=== PATIENT | female | born 1995 | race Caucasian/White ===

== ENCOUNTER 2024-11-08 08:11 | Outpatient (CLI) | payer OTHER | END 2024-11-08 08:12 | disposition home or self-care (01) | LOC: CSHWCC 08:11 | PROVIDERS: ATTEND Nurse Practitioner Family | DX: T81.328D Disruption or dehiscence of closure of other specified internal operation (surgical) wound, subsequent encounter (principal) | CPT/HCPCS: 11042; 11045; 97606; 99213; G0463 ==

== ENCOUNTER 2024-11-11 09:25 | Outpatient (CLI) | payer OTHER | END 2024-11-11 09:26 | disposition home or self-care (01) | LOC: CSHWCC 09:25 | PROVIDERS: ATTEND Nurse Practitioner Family | DX: T81.328D Disruption or dehiscence of closure of other specified internal operation (surgical) wound, subsequent encounter (principal) | CPT/HCPCS: 97606 ==

== ENCOUNTER 2024-11-15 13:22 | Outpatient (CLI) | payer OTHER | END 2024-11-15 13:23 | disposition home or self-care (01) | LOC: CSHWCC 13:22 | PROVIDERS: ATTEND Nurse Practitioner Family | DX: T81.328D Disruption or dehiscence of closure of other specified internal operation (surgical) wound, subsequent encounter (principal) | CPT/HCPCS: 11042; 11045; 97605 ==

== ENCOUNTER 2024-11-22 09:41 | Outpatient (CLI) | payer OTHER | END 2024-11-22 09:42 | disposition home or self-care (01) | LOC: CSHWCC 09:41 | PROVIDERS: ATTEND Nurse Practitioner Family | DX: T81.328D Disruption or dehiscence of closure of other specified internal operation (surgical) wound, subsequent encounter (principal) | CPT/HCPCS: 11042; 97605 ==

== ENCOUNTER 2024-11-29 10:19 | Outpatient (CLI) | payer OTHER | END 2024-11-29 10:20 | disposition home or self-care (01) | LOC: CSHWCC 10:19 | PROVIDERS: ATTEND Nurse Practitioner Family | DX: T81.328D Disruption or dehiscence of closure of other specified internal operation (surgical) wound, subsequent encounter (principal) | CPT/HCPCS: 11042; 97605 ==

== ENCOUNTER 2024-12-09 09:24 | Outpatient (CLI) | payer OTHER | END 2024-12-09 09:25 | disposition home or self-care (01) | LOC: CSHWCC 09:24 | PROVIDERS: ATTEND Nurse Practitioner Family | DX: T81.328D Disruption or dehiscence of closure of other specified internal operation (surgical) wound, subsequent encounter (principal) | CPT/HCPCS: 11042; 11045; 99213; G0463 ==